=== PATIENT | female | born 1955 | race Caucasian/White ===

== ENCOUNTER 2020-05-21 10:30 | Outpatient (CLI) | payer BC, SELFPAY ==
--- NOTE | ~2020-05-21 | MM_ITS ---
EXAMINATION: MM screening nacho BI w robbie HISTORY: Screening mammogram TECHNIQUE: Craniocaudal and mediolateral oblique 3-D tomosynthesis images were obtained and synthetic 2-D images were generated. CAD analysis was submitted and interpreted. COMPARISON: 10/24/2018 left screening and right diagnostic digital mammogram examination bilateral diagnostic digital mammogram and limited left breast ultrasound BREAST PARENCHYMAL COMPOSITION: There are scattered areas of fibroglandular density. FINDINGS: There is a biopsy marker on the left; history of prior benign left breast biopsy. There are scattered benign-appearing microcalcifications. There is no evidence of suspicious mass, calcificati on, or architectural distortion to suggest malignancy in either breast. There has been no suspicious interval change. IMPRESSION: 1. No mammographic evidence of malignancy. 2. Recommend routine screening mammography in one year. BI-RADS Category 2: Benign finding(s) Reviewed, dictated and finalized at location A.
== END 2020-05-21 10:31 | disposition home or self-care (01) ==
PROVIDERS: PCP Family Medicine; Visit Provider Obstetrics & Gynecology
DX: Z12.31 Encounter for screening mammogram for malignant neoplasm of breast (principal)
CPT/HCPCS: 77063; 77067

== ENCOUNTER 2023-08-09 09:04 | Outpatient (CLI) | payer MEDICARE, SELFPAY ==
[2023-08-09 09:20] LABS: Basophils Absolute Auto 0.1 K/mm3 (0.0-0.1); Basophils Percent Auto 1.2 % (0.2-1.2); Eosinophils Absolute Auto 0.1 K/mm3 (0-0.3); Eosinophils Percent Auto 1.1 % (0-4.4); Hemoglobin 13.8 g/dL (12.0-15.0); Immature Granulocyte Absolute 0.02 K/mm3 (0.00-0.031); Immature Granulocyte Percent A 0.3 % (0-0.5); Lymphocytes Absolute Auto 2.02 K/mm3 (0.9-3.2); Lymphocytes Percent Auto 31.4 % (18.3-44.2); Mean Corpuscular HGB Conc 33.7 g/dl (32-36); Mean Corpuscular Hemoglobin 34.2 pg (26-34); Mean Corpuscular Volume 101.7 fl (80-100); Mean Platelet Volume 11.2 fl (7.4-10.4); Monocytes Absolute Auto 0.5 K/mm3 (0.1-0.6); Monocytes Percent Auto 8.1 % (2.6-8.5); Neutrophils Absolute Auto 3.7 K/mm3 (1.3-6.7); Neutrophils Percent Auto 57.9 % (45.5-73.1); Platelet Count Result 217 k/mm3 (150-375); Red Blood Count 4.03 M/mm3 (4.2-5.4); Red Cell Distribution Width 12.5 % (11.5-14.5); White Blood Count 6.4 K/mm3 (4.5-10.0)
== END 2023-08-09 09:05 | disposition home or self-care (01) ==
LOC: ANHLAB 09:09
PROVIDERS: PCP Family Medicine; Visit Provider Internal Medicine Hematology & Oncology
DX: D75.89 Other specified diseases of blood and blood-forming organs (principal)
CPT/HCPCS: 36415; 85025